=== PATIENT | male | born 1995 | race Caucasian/White ===

== ENCOUNTER 2019-01-08 19:58 | Inpatient (IN) ==
--- NOTE | 2019-01-08 20:01 | Emergency Department Note ---
Disposition Clinical Impression: Suicidal ideation Alcohol intoxication Qualifiers: Complication of substance-induced condition: with delirium Qualified Code(s): F10.921 - Alcohol use, unspecified with intoxication delirium Disposition: Admitted As Inpatient Condition: Fair Referrals: NONE,PCP [Primary Care Provider] - Forms: ED Satisfaction Letter Time of Disposition: 06:53 Psych HPI - General Stated Complaint: SI Time Seen by Provider: 01/08/19 20:01 - History of Present Illness HPI Narrative: 23-year-old male, no significant past medical history presenting due to suicidal ideation. Patient states that he attempted to "drink himself to " this evening and states that "I cannot drink enough alcohol to kill myself." Patient states that he wants to see 1A states that he is suicidal with plan stating that he stole his parents gun and that he intends to "blow his head off." Patient denies homicidal ideation. Patient is otherwise unable to take part in significant review of systems questioning, as he answers "yes sir" to every question with this which is asked of him. When asked to give open ended answers to if he has any pain or complaints at this time he states no, however when ask ed about specifically headache chest pain or abdominal pain he says "yes sir." Patient is intoxicated and appears to be mildly agitated. He will be pink slipped with psychiatric evaluation pending medical clearance. Pt complaint: suicidal ideation, feels depressed, altered mental status Onset (ago): unknown Context: recent alcohol abuse Alleged intoxication: Yes Associated Psychiatric Symptoms: depression, suicidal ideation Self harm or harm to others: admits thoughts of self harm, has plan - Related Data Home Medications Medication Instructions Recorded Confirmed Citalopram [CeleXA] 40 mg PO DAILY 10/25/15 10/25/15 Previous Rx's Medication Instructions Recorded Ibuprofen [Motrin] 800 mg PO Q8HR #30 tablet 10/25/15 Naproxen [Naprosyn] 500 mg PO BID #14 tablet 09/20/18 Allergies Allergy/AdvReac Type Severity Reaction Status Date / Time No Known Allergies Allergy Verified 10/06/18 22:58 Review of Systems: As Per HPI Limitations: ROS unobtainable due to patients medical condition Past Medical History - Past Medical History Medical history: Reports: no medical history Surgical history: Reports: no surgical history Psychiatric history: Reports: anxiety - Social History Smoking Status: Never smoker Smokeless Tobacco Status: No Alcohol use: Reports: none Drug use: Reports: none Physical Exam Constitutional: Patient appears in moderate emotional distress and is also intoxicated he is otherwise [id number], engaged to conversation, speech is fluid, answers questions appropriately Neuro: GCS 15, no overt focal neurological deficits Head: Atraumatic, normocephalic Eyes: Pupils equal, round and reactive to light, no scleral icterus, no conjunctival injection Neck: Trachea midline without deviation. Anterior neck is supple without swelling. *Chest: Symmetric chest wall rise *Heart: Cardiac rhythm and rate are regular with S1 and S2 , no S3 or S4 appreciated, no murmurs, gallops, rubs, or clicks. *Lungs: Lungs are clear to auscultation bilaterally, without accessory muscle use or prolonged expiratory phase. No wheezes, rhonchi or stridor appreciated. Abdomen: Abdomen is flat, soft to palpation, normal bowel sounds. No abdominal bruit auscultated. Non-distended, non-rigid, no organomegaly, no ascites appreciated. No pulsatile mass, no tenderness or guarding to palpation in all four quadrants, no rebound Extremities: Normal capillary refill without evidence of pedal edema, joint swelling or erythema. Pulses/motor/sensory intact in all 4 extremities. Psychiatric exam: Patient is intoxicated and appears agitated, he is otherwise cooperative with questioning Integumentary: warm, dry, intact, normal color. No rash, cyanosis, diaphoresis, erythema, or pallor - General Limitations: altered mental status General appearance: appears intoxicated Course Course Narrative: Basic laboratories, toxicologies We will consult psychiatric services for further evaluation pending medical clearance. - Reevaluation(s) Reevaluation #1: Patient ethanol in all level is elevated at 212 Repeat ethanol level will be performed at 2 AM Consults psychiatric services will be placed for an ethanol level of 80 has been reached Patient is hemodynamically stable at this time. Vital Signs Temperature 98.3 F 01/08/19 20:05 Pulse Rate 114 01/08/19 20:05 Respiratory Rate 16 01/08/19 20:05 Blood Pressure 142/93 01/08/19 20:05 O2 Sat by Pulse Oximetry 98 01/08/19 20:05 Temperature 98.3 F 01/08/19 20:05 Pulse Rate 114 01/08/19 20:05 Respiratory Rate 16 01/08/19 20:05 Blood Pressure 142/93 01/08/19 20:05 O2 Sat by Pulse Oximetry 98 01/08/19 20:05 Oxygen Delivery Oxygen Delivery Room Air Psych - MDM Narrative Medical decision making narrative: Patient ethanol level noted at 69 upon dry 4 AM. Patient is cleared for medical evaluation at this time. Patient will be admitted to psychiatric services for further evaluation and management of suicidal ideation. Decision to place and bed request have been entered. Patient is hemodynamically stable time of admission. - Lab Data Result diagrams: 01/08/19 20:07 01/08/19 20:07 Lab Results 01/08/19 01/08/19 01/08/19 Range/Units 20:07 20:07 20:50 WBC 13.3 H (4.3-11.1) K/mcL RBC 5.07 (4.19-5.50) M/mcL Hgb 15.2 (12.9-16.9) g/dL Hct 44.9 (37.5-50.1) % MCV 88.6 (83.0-100.0) fL MCH 30.0 (28.0-33.3) pg MCHC 33.9 (31.6-35.5) g/dL RDW 13.4 (11.5-14.5) % Plt Count 260 (140-400) K/mcL MPV 10.0 (9.4-12.4) fL Immature Gran % 0.3 (0-4) % Seg Neutrophils % 71.7 % Lymphocytes % 21.3 % Monocytes % 6.4 % Eosinophils % 0.1 % Basophils % 0.2 % Neutrophils # 9.6 H (1.6-8.9) K/mcL Lymphocytes # 2.8 (0.6-4.6) K/mcL Monocytes # 0.9 (0.0-1.3) K/mcL Eosinophils # 0.0 (0.0-0.6) K/mcL Basophils # 0.0 (0.0-0.2) K/mcL Sodium 142 (136-145) mEq/L Potassium 3.8 (3.5-5.1) mEq/L Chloride 106 (98-107) mEq/L Carbon Dioxide 26 (23-29) mEq/L BUN 13 (6-20) mg/dL Creatinine 0.88 (0.70-1.30) mg/dL Est GFR ( Amer) > 60 (> 60) Est GFR (Non-Af Amer) > 60 (> 60) BUN/Creatinine Ratio 15 (6-26) Glucose 77 (70-105) mg/dL Calculated Osmolality 293 (280-300) Calcium 9.8 (8.6-10.3) mg/dL Urine Color (Yellow) Urine Clarity (Clear) Urine pH (5.0-8.0) pH Units Ur Specific [place] (1.010-1.025) Urine Protein (Neg-Trace) mg/dL Urine Glucose (UA) (Normal) mg/dL Urine Ketones (Negative) mg/dL Urine Blood (Negative) Urine Nitrite (Negative) Urine Bilirubin (Negative) Urine Urobilinogen (Normal) mg/dL Ur Leukocyte Esterase (Negative) Ur Culture Indicated? (NO) Salicylates < 2.5 L (15.0-30.0) mg/dL Urine Opiates Screen (Zrtuew=765) ng/mL Acetaminophen < 10 L (10-20) mcg/mL Ur Barbiturates Screen (Egutcm=623) ng/mL Ur Phencyclidine Scrn (Cutoff=25) ng/mL Ur Amphetamines Screen (Nyypav=2334) ng/mL U Benzodiazepines Scrn (Smauxj=916) ng/mL Urine Cocaine Screen (Cutoff= 300) ng/mL U Marijuana (THC) Screen (Cutoff = 50) ng/mL Ur Drug Screen Interp Ethyl Alcohol 212 H (Less than 10) mg/dL Ur C. trach DNA (PCR) NOT DETECTED (Not Detect) U N.gonorrhoeae DNA PCR NOT DETECTED (Not Detect) 01/08/19 01/08/19 01/09/19 Range/Units 20:52 20:52 02:05 WBC (4.3-11.1) K/mcL RBC (4.19-5.50) M/mcL Hgb (12.9-16.9) g/dL Hct (37.5-50.1) % MCV (83.0-100.0) fL MCH (28.0-33.3) pg MCHC (31.6-35.5) g/dL RDW (11.5-14.5) % Plt Count (140-400) K/mcL MPV (9.4-12.4) fL Immature Gran % (0-4) % Seg Neutrophils % % Lymphocytes % % Monocytes % % Eosinophils % % Basophils % % Neutrophils # (1.6-8.9) K/mcL Lymphocytes # (0.6-4.6) K/mcL Monocytes # (0.0-1.3) K/mcL Eosinophils # (0.0-0.6) K/mcL Basophils # (0.0-0.2) K/mcL Sodium (136-145) mEq/L Potassium (3.5-5.1) mEq/L Chloride (98-107) mEq/L Carbon Dioxide (23-29) mEq/L BUN (6-20) mg/dL Creatinine (0.70-1.30) mg/dL Est GFR ( Amer) (> 60) Est GFR (Non-Af Amer) (> 60) BUN/Creatinine Ratio (6-26) Glucose (70-105) mg/dL Calculated Osmolality (280-300) Calcium (8.6-10.3) mg/dL Urine Color Yellow (Yellow) Urine Clarity Clear (Clear) Urine pH 7.5 (5.0-8.0) pH Units Ur Specific [place] 1.012 (1.010-1.025) Urine Protein Negative (Neg-Trace) mg/dL Urine Glucose (UA) Normal (Normal) mg/dL Urine Ketones Negative (Negative) mg/dL Urine Blood Negative (Negative) Urine Nitrite Negative (Negative) Urine Bilirubin Negative (Negative) Urine Urobilinogen Normal (Normal) mg/dL Ur Leukocyte Esterase Negative (Negative) Ur Culture Indicated? NO (NO) Salicylates (15.0-30.0) mg/dL Urine Opiates Screen Negative (Jufxfk=625) ng/mL Acetaminophen (10-20) mcg/mL Ur Barbiturates Screen Negative (Gvrfwc=196) ng/mL Ur Phencyclidine Scrn Negative (Cutoff=25) ng/mL Ur Amphetamines Screen Negative (Bfnesf=3680) ng/mL U Benzodiazepines Scrn Negative (Uvzgdb=243) ng/mL Urine Cocaine Screen Negative (Cutoff= 300) ng/mL U Marijuana (THC) Screen Positive H (Cutoff = 50) ng/mL Ur Drug Screen Interp See Below Ethyl Alcohol 109 H (Less than 10) mg/dL Ur C. trach DNA (PCR) (Not Detect) U N.gonorrhoeae DNA PCR (Not Detect) 01/09/19 Range/Units 03:56 WBC (4.3-11.1) K/mcL RBC (4.19-5.50) M/mcL Hgb (12.9-16.9) g/dL Hct (37.5-50.1) % MCV (83.0-100.0) fL MCH (28.0-33.3) pg MCHC (31.6-35.5) g/dL RDW (11.5-14.5) % Plt Count (140-400) K/mcL MPV (9.4-12.4) fL Immature Gran % (0-4) % Seg Neutrophils % % Lymphocytes % % Monocytes % % Eosinophils % % Basophils % % Neutrophils # (1.6-8.9) K/mcL Lymphocytes # (0.6-4.6) K/mcL Monocytes # (0.0-1.3) K/mcL Eosinophils # (0.0-0.6) K/mcL Basophils # (0.0-0.2) K/mcL Sodium (136-145) mEq/L Potassium (3.5-5.1) mEq/L Chloride (98-107) mEq/L Carbon Dioxide (23-29) mEq/L BUN (6-20) mg/dL Creatinine (0.70-1.30) mg/dL Est GFR ( Amer) (> 60) Est GFR (Non-Af Amer) (> 60) BUN/Creatinine Ratio (6-26) Glucose (70-105) mg/dL Calculated Osmolality (280-300) Calcium (8.6-10.3) mg/dL Urine Color (Yellow) Urine Clarity (Clear) Urine pH (5.0-8.0) pH Units Ur Specific [place] (1.010-1.025) Urine Protein (Neg-Trace) mg/dL Urine Glucose (UA) (Normal) mg/dL Urine Ketones (Negative) mg/dL Urine Blood (Negative) Urine Nitrite (Negative) Urine Bilirubin (Negative) Urine Urobilinogen (Normal) mg/dL Ur Leukocyte Esterase (Negative) Ur Culture Indicated? (NO) Salicylates (15.0-30.0) mg/dL Urine Opiates Screen (Yynzkl=670) ng/mL Acetaminophen (10-20) mcg/mL Ur Barbiturates Screen (Zqnryu=582) ng/mL Ur Phencyclidine Scrn (Cutoff=25) ng/mL Ur Amphetamines Screen (Hjcnbw=3904) ng/mL U Benzodiazepines Scrn (Whzeol=808) ng/mL Urine Cocaine Screen (Cutoff= 300) ng/mL U Marijuana (THC) Screen (Cutoff = 50) ng/mL Ur Drug Screen Interp Ethyl Alcohol 69 H (Less than 10) mg/dL Ur C. trach DNA (PCR) (Not Detect) U N.gonorrhoeae DNA PCR (Not Detect) Psychiatric Medical Clearance - Medical Clearance Checklist Medical History: No Social History Section defined Current Vitals: Last Vital Signs Temp 98.3 F 01/08/19 20:05 Pulse 114 01/08/19 20:05 Resp 16 01/08/19 20:05 BP 142/93 01/08/19 20:05 Pulse Ox 98 01/08/19 20:05 Psychiatric Lab Panel: Drug Levels and Toxicity 01/08/19 01/08/19 01/09/19 20:07 20:52 02:05 Urine Opiates Screen Negative Acetaminophen < 10 L Ur Barbiturates Screen Negative Ur Phencyclidine Scrn Negative Ur Amphetamines Screen Negative U Benzodiazepines Scrn Negative Urine Cocaine Screen Negative U Marijuana (THC) Screen Positive H Ethyl Alcohol 212 H 109 H 01/09/19 03:56 Urine Opiates Screen Acetaminophen Ur Barbiturates Screen Ur Phencyclidine Scrn Ur Amphetamines Screen U Benzodiazepines Scrn Urine Cocaine Screen U Marijuana (THC) Screen Ethyl Alcohol 69 H Abnormal Labs: Abnormal lab results WBC 13.3 K/mcL (4.3-11.1) H 01/08/19 20:07 9.6 K/mcL (1.6-8.9) H 01/08/19 20:07 Salicylates < 2.5 mg/dL (15.0-30.0) L 01/08/19 20:07 Acetaminophen < 10 mcg/mL (10-20) L 01/08/19 20:07 U Marijuana (THC) Screen Positive ng/mL (Cutoff = 50) H 01/08/19 20:52 Ethyl Alcohol 69 mg/dL (Less than 10) H 01/09/19 03:56 Statement of Medical Clearance: I have evaluated the patient, reviewed diagnostic information, and certify that the patient's medical condition is sufficiently stable that transfer to the psychiatric unit does not pose a significant risk of deterioration.
[2019-01-08] MEDS ORDERED: Nicotine 21 MG PATCH.TD24 TD SCH (20:30)
[2019-01-08 21:03] LABS: Bilirubin,Urine Negative (Negative); Blood,Urine Negative (Negative); Clarity,Urine Clear (Clear); Color,Urine Yellow (Yellow); Glucose,Urine (UA) Normal (Normal); Ketones,Urine Negative (Negative); Leukocyte Esterase,Urine Negative (Negative); Nitrite,Urine Negative (Negative); PH,Urine 7.5 pH Units (5.0-8.0); Protein,Urine Negative (Neg-Trace); Specific Gravity,Urine 1.012 (1.010-1.025); Urobilinogen,Urine Normal (Normal)
[2019-01-08 21:08] LABS: Basophils % 0.2 %; Eosinophils % 0.1 %; Hematocrit 44.9 % (37.5-50.1); Hemoglobin 15.2 g/dL (12.9-16.9); Immature Granulocytes % 0.3 % (0-4); Lymphocytes # 2.8 K/mcL (0.6-4.6); Lymphocytes % 21.3 %; Mean Corpuscular HGB Conc 33.9 g/dL (31.6-35.5); Mean Corpuscular Volume 88.6 fL (83.0-100.0); Monocytes # 0.9 K/mcL (0.0-1.3); Monocytes % 6.4 %; Neutrophils # 9.6 K/mcL (1.6-8.9); Platelet Count 260 K/mcL (140-400); Red Blood Count 5.07 M/mcL (4.19-5.50); Red Cell Distribution Width 13.4 % (11.5-14.5); Segmented Neutrophils % 71.7 %; White Blood Count 13.3 K/mcL (4.3-11.1)
[2019-01-08 21:13] LABS: Amphetamine Screen,Urine Negative ng/mL (Cutoff=1000); Barbiturate Screen,Urine Negative ng/mL (Cutoff=200); Benzodiazepines Screen,Urine Negative ng/mL (Cutoff=200); Cannabinoid Screen,Urine Positive ng/mL (Cutoff = 50); Cocaine Screen,Urine Negative ng/mL (Cutoff= 300); Opiate Screen,Urine Negative ng/mL (Cutoff=300); Phencyclidine Screen,Urine Negative ng/mL (Cutoff=25)
[2019-01-08 21:25] LABS: Acetaminophen < 10 mcg/mL (10-20); BUN/Creatinine Ratio 15 (6-26); Blood Urea Nitrogen 13 mg/dL (6-20); Calcium 9.8 mg/dL (8.6-10.3); Carbon Dioxide 26 mEq/L (23-29); Chloride 106 mEq/L (98-107); Ethanol 212 mg/dL (Less than 10); Glucose 77 mg/dL (70-105); Osmolality,Calculated 293 (280-300); Potassium 3.8 mEq/L (3.5-5.1); Salicylate < 2.5 mg/dL (15.0-30.0); Sodium 142 mEq/L (136-145); eGFR For African Americans > 60 (> 60); eGFR For Non-African Americans > 60 (> 60)
--- NOTE | 2019-01-08 21:52 | Emergency Department Note ---
Disposition Clinical Impression: Suicidal ideation Alcohol intoxication Qualifiers: Complication of substance-induced condition: with delirium Qualified Code(s): F10.921 - Alcohol use, unspecified with intoxication delirium Disposition: Admitted As Inpatient Condition: Fair Time of Disposition: 07:09 General Adult HPI - General Chief complaint: ED Psychiatric Symptoms Stated complaint: SI Time Seen by Provider: 01/08/19 20:01 Source: patient Limitations: no limitations Nursing Notes Reviewed: Yes Vital Signs Reviewed: Yes - History of Present Illness Pain Scale: 0 - Related Data Home Medications Medication Instructions Recorded Confirmed Citalopram [CeleXA] 40 mg PO DAILY 10/25/15 10/25/15 Previous Rx's Medication Instructions Recorded Ibuprofen [Motrin] 800 mg PO Q8HR #30 tablet 10/25/15 Naproxen [Naprosyn] 500 mg PO BID #14 tablet 09/20/18 Allergies Allergy/AdvReac Type Severity Reaction Status Date / Time No Known Allergies Allergy Verified 10/06/18 22:58 Past Medical History - Past Medical History Medical history: Reports: no medical history Surgical history: Reports: no surgical history Psychiatric history: Reports: anxiety - Social History Smoking Status: Current every day smoker Smokeless Tobacco Status: No Alcohol use: Reports: heavy, recent Drug use: Reports: none Physical Exam - General Limitations: no limitations General appearance: alert, appears intoxicated Course Vital Signs Temperature 98.3 F 01/08/19 20:05 Pulse Rate 114 01/08/19 20:05 Respiratory Rate 16 01/08/19 20:05 Blood Pressure 142/93 01/08/19 20:05 O2 Sat by Pulse Oximetry 98 01/08/19 20:05 Temperature 98.3 F 01/08/19 20:05 Pulse Rate 114 01/08/19 20:05 Respiratory Rate 16 01/08/19 20:05 Blood Pressure 142/93 01/08/19 20:05 O2 Sat by Pulse Oximetry 98 01/08/19 20:05 Oxygen Delivery Oxygen Delivery Room Air Medical Decision Making - Lab Data Lab results reviewed: Yes I reviewed the patient's lab results. Result diagrams: 01/08/19 20:07 01/08/19 20:07 Lab Results 01/08/19 01/08/19 01/08/19 Range/Units 20:07 20:07 20:50 WBC 13.3 H (4.3-11.1) K/mcL RBC 5.07 (4.19-5.50) M/mcL Hgb 15.2 (12.9-16.9) g/dL Hct 44.9 (37.5-50.1) % MCV 88.6 (83.0-100.0) fL MCH 30.0 (28.0-33.3) pg MCHC 33.9 (31.6-35.5) g/dL RDW 13.4 (11.5-14.5) % Plt Count 260 (140-400) K/mcL MPV 10.0 (9.4-12.4) fL Immature Gran % 0.3 (0-4) % Seg Neutrophils % 71.7 % Lymphocytes % 21.3 % Monocytes % 6.4 % Eosinophils % 0.1 % Basophils % 0.2 % Neutrophils # 9.6 H (1.6-8.9) K/mcL Lymphocytes # 2.8 (0.6-4.6) K/mcL Monocytes # 0.9 (0.0-1.3) K/mcL Eosinophils # 0.0 (0.0-0.6) K/mcL Basophils # 0.0 (0.0-0.2) K/mcL Sodium 142 (136-145) mEq/L Potassium 3.8 (3.5-5.1) mEq/L Chloride 106 (98-107) mEq/L Carbon Dioxide 26 (23-29) mEq/L BUN 13 (6-20) mg/dL Creatinine 0.88 (0.70-1.30) mg/dL Est GFR ( Amer) > 60 (> 60) Est GFR (Non-Af Amer) > 60 (> 60) BUN/Creatinine Ratio 15 (6-26) Glucose 77 (70-105) mg/dL Calculated Osmolality 293 (280-300) Calcium 9.8 (8.6-10.3) mg/dL Urine Color (Yellow) Urine Clarity (Clear) Urine pH (5.0-8.0) pH Units Ur Specific [place] (1.010-1.025) Urine Protein (Neg-Trace) mg/dL Urine Glucose (UA) (Normal) mg/dL Urine Ketones (Negative) mg/dL Urine Blood (Negative) Urine Nitrite (Negative) Urine Bilirubin (Negative) Urine Urobilinogen (Normal) mg/dL Ur Leukocyte Esterase (Negative) Ur Culture Indicated? (NO) Salicylates < 2.5 L (15.0-30.0) mg/dL Urine Opiates Screen (Cdaszn=379) ng/mL Acetaminophen < 10 L (10-20) mcg/mL Ur Barbiturates Screen (Btqawe=950) ng/mL Ur Phencyclidine Scrn (Cutoff=25) ng/mL Ur Amphetamines Screen (Zmugwk=4069) ng/mL U Benzodiazepines Scrn (Otmntf=357) ng/mL Urine Cocaine Screen (Cutoff= 300) ng/mL U Marijuana (THC) Screen (Cutoff = 50) ng/mL Ur Drug Screen Interp Ethyl Alcohol 212 H (Less than 10) mg/dL Ur C. trach DNA (PCR) NOT DETECTED (Not Detect) U N.gonorrhoeae DNA PCR NOT DETECTED (Not Detect) 01/08/19 01/08/19 01/09/19 Range/Units 20:52 20:52 02:05 WBC (4.3-11.1) K/mcL RBC (4.19-5.50) M/mcL Hgb (12.9-16.9) g/dL Hct (37.5-50.1) % MCV (83.0-100.0) fL MCH (28.0-33.3) pg MCHC (31.6-35.5) g/dL RDW (11.5-14.5) % Plt Count (140-400) K/mcL MPV (9.4-12.4) fL Immature Gran % (0-4) % Seg Neutrophils % % Lymphocytes % % Monocytes % % Eosinophils % % Basophils % % Neutrophils # (1.6-8.9) K/mcL Lymphocytes # (0.6-4.6) K/mcL Monocytes # (0.0-1.3) K/mcL Eosinophils # (0.0-0.6) K/mcL Basophils # (0.0-0.2) K/mcL Sodium (136-145) mEq/L Potassium (3.5-5.1) mEq/L Chloride (98-107) mEq/L Carbon Dioxide (23-29) mEq/L BUN (6-20) mg/dL Creatinine (0.70-1.30) mg/dL Est GFR ( Amer) (> 60) Est GFR (Non-Af Amer) (> 60) BUN/Creatinine Ratio (6-26) Glucose (70-105) mg/dL Calculated Osmolality (280-300) Calcium (8.6-10.3) mg/dL Urine Color Yellow (Yellow) Urine Clarity Clear (Clear) Urine pH 7.5 (5.0-8.0) pH Units Ur Specific [place] 1.012 (1.010-1.025) Urine Protein Negative (Neg-Trace) mg/dL Urine Glucose (UA) Normal (Normal) mg/dL Urine Ketones Negative (Negative) mg/dL Urine Blood Negative (Negative) Urine Nitrite Negative (Negative) Urine Bilirubin Negative (Negative) Urine Urobilinogen Normal (Normal) mg/dL Ur Leukocyte Esterase Negative (Negative) Ur Culture Indicated? NO (NO) Salicylates (15.0-30.0) mg/dL Urine Opiates Screen Negative (Vxlcbd=042) ng/mL Acetaminophen (10-20) mcg/mL Ur Barbiturates Screen Negative (Hekgel=496) ng/mL Ur Phencyclidine Scrn Negative (Cutoff=25) ng/mL Ur Amphetamines Screen Negative (Cceuss=1780) ng/mL U Benzodiazepines Scrn Negative (Gqzfow=239) ng/mL Urine Cocaine Screen Negative (Cutoff= 300) ng/mL U Marijuana (THC) Screen Positive H (Cutoff = 50) ng/mL Ur Drug Screen Interp See Below Ethyl Alcohol 109 H (Less than 10) mg/dL Ur C. trach DNA (PCR) (Not Detect) U N.gonorrhoeae DNA PCR (Not Detect) 01/09/19 Range/Units 03:56 WBC (4.3-11.1) K/mcL RBC (4.19-5.50) M/mcL Hgb (12.9-16.9) g/dL Hct (37.5-50.1) % MCV (83.0-100.0) fL MCH (28.0-33.3) pg MCHC (31.6-35.5) g/dL RDW (11.5-14.5) % Plt Count (140-400) K/mcL MPV (9.4-12.4) fL Immature Gran % (0-4) % Seg Neutrophils % % Lymphocytes % % Monocytes % % Eosinophils % % Basophils % % Neutrophils # (1.6-8.9) K/mcL Lymphocytes # (0.6-4.6) K/mcL Monocytes # (0.0-1.3) K/mcL Eosinophils # (0.0-0.6) K/mcL Basophils # (0.0-0.2) K/mcL Sodium (136-145) mEq/L Potassium (3.5-5.1) mEq/L Chloride (98-107) mEq/L Carbon Dioxide (23-29) mEq/L BUN (6-20) mg/dL Creatinine (0.70-1.30) mg/dL Est GFR ( Amer) (> 60) Est GFR (Non-Af Amer) (> 60) BUN/Creatinine Ratio (6-26) Glucose (70-105) mg/dL Calculated Osmolality (280-300) Calcium (8.6-10.3) mg/dL Urine Color (Yellow) Urine Clarity (Clear) Urine pH (5.0-8.0) pH Units Ur Specific [place] (1.010-1.025) Urine Protein (Neg-Trace) mg/dL Urine Glucose (UA) (Normal) mg/dL Urine Ketones (Negative) mg/dL Urine Blood (Negative) Urine Nitrite (Negative) Urine Bilirubin (Negative) Urine Urobilinogen (Normal) mg/dL Ur Leukocyte Esterase (Negative) Ur Culture Indicated? (NO) Salicylates (15.0-30.0) mg/dL Urine Opiates Screen (Rrnvhg=210) ng/mL Acetaminophen (10-20) mcg/mL Ur Barbiturates Screen (Qaskbg=783) ng/mL Ur Phencyclidine Scrn (Cutoff=25) ng/mL Ur Amphetamines Screen (Kirffd=1662) ng/mL U Benzodiazepines Scrn (Iyitdc=901) ng/mL Urine Cocaine Screen (Cutoff= 300) ng/mL U Marijuana (THC) Screen (Cutoff = 50) ng/mL Ur Drug Screen Interp Ethyl Alcohol 69 H (Less than 10) mg/dL Ur C. trach DNA (PCR) (Not Detect) U N.gonorrhoeae DNA PCR (Not Detect) Attestation Statement - Attestation Attestation: I, Adelso Zamudio MD, personally evaluated this patient and discussed their management with the resident physician. I reviewed the resident's note and agree with the documented findings, medical decision making, and plan of care. 23-year-old male persisted emergency department with complaint of suicidal ideation. Patient states that he wants to take a gun and shoot himself in the head. He denies homicidal ideation. He admits to drinking alcohol heavily today. She admits to using marijuana. He denies any other drug use or ingestion. On examination patient is a well-developed thin young male in no acute distress. He is alert and oriented 3. There is no cyanosis or diaphoresis. Breath sounds are clear and equal bilaterally. Heart regular with a mild tachycardia. Abdomen soft and nontender with normal bowel sounds. No gross focal neurological deficits. Labs reviewed. Alcohol level 212. We will repeat alcohol at 02:00. Alcohol came down to 69. [address] psychiatry department was consulted and evaluated patient in the emergency department. After evaluation patient is being admitted to the [address] psychiatric unit.
[2019-01-09 00:17] LABS: Chlamydia Trachomatis DNA Ur NOT DETECTED (Not Detect)
[2019-01-09] MEDS ORDERED: *HR* LORazepam 1 MG TABLET PO PRN (07:32)
[2019-01-09] MEDS ORDERED: MOM Conc 10 ML UD.LIQ PO PRN (07:32)
[2019-01-09] MEDS ORDERED: Mag Hydrox/Al Hydrox/Simeth 30 ML UDC PO PRN (07:32)
[2019-01-09] MEDS ORDERED: Ibuprofen 400 MG TABLET PO PRN (07:32)
[2019-01-09] MEDS ORDERED: traZODone 50 MG TABLET PO PRN (07:32)
[2019-01-09] MEDS ORDERED: hydrOXYzine pamoate 25 MG CAPSULE PO PRN (07:32)
[2019-01-09] MEDS ORDERED: *HR* LORazepam 2 MG/ML VIAL IM PRN (07:32)
[2019-01-09] MEDS ORDERED: Haloperidol Lactate 5 MG/ML VIAL IM PRN (07:32)
[2019-01-09] MEDS ORDERED: Nicotine 2 MG GUM BC PRN (07:54)
[2019-01-09 09:46] VITALS: BP 134/86
--- NOTE | 2019-01-09 10:34 | Psychiatry History & Physical ---
Date of Encounter: 01/09/19 Time of Encounter: 10:28 History of Present Illness Patient Stated Chief Complaint: suicidal ideation Medicare Admission Attestation: For traditional Medicare patients the provided hospital inpatient services are reasonable and necessary and in the case of services not specified as inpatient-only under 42 CFR 419.22 (n), that they are appropriately provided as inpatient services in accordance 42 CFR 412.3. For [facility] the patient may reasonably be expected to be discharged or transferred to a hospital within 96 hours after admission to the Critical [facility]. Admitted From: Home Plans for Post Hospital Care: Home History of Present Illness: Mr. Ward is a 23 year old male Past Med Surg Social Fam HX - Past Medical History Medical history: no medical history - Past Surgical History Surgical History: no surgical history - Social History Smoking Status: Current every day smoker Smokeless Tobacco Status: No Alcohol use: heavy, recent Drug use: none Medications & Allergies Naproxen [Naprosyn] 500 mg PO BID #14 tablet 09/20/18 [Rx] Allergy/AdvReac Type Severity Reaction Status Date / Time No Known Allergies Allergy Verified 10/06/18 22:58 Exam - Constitutional Vitals: Temp Pulse Resp BP Pulse Ox 98.1 F 62 16 134/86 97 01/09/19 09:00 01/09/19 09:00 01/09/19 09:00 01/09/19 09:00 01/09/19 09:00 Results - Drug Levels and Toxicology Drug Levels and Toxicology: Drug Levels and Toxicity 01/08/19 01/08/19 01/09/19 20:07 20:52 02:05 Urine Opiates Screen Negative Acetaminophen < 10 L Ur Barbiturates Screen Negative Ur Phencyclidine Scrn Negative Ur Amphetamines Screen Negative U Benzodiazepines Scrn Negative Urine Cocaine Screen Negative U Marijuana (THC) Screen Positive H Ethyl Alcohol 212 H 109 H 01/09/19 03:56 Urine Opiates Screen Acetaminophen Ur Barbiturates Screen Ur Phencyclidine Scrn Ur Amphetamines Screen U Benzodiazepines Scrn Urine Cocaine Screen U Marijuana (THC) Screen Ethyl Alcohol 69 H - Labs Labs: Laboratory Last Values WBC 13.3 K/mcL (4.3-11.1) H 01/08/19 20:07 RBC 5.07 M/mcL (4.19-5.50) 01/08/19 20:07 Hgb 15.2 g/dL (12.9-16.9) 01/08/19 20:07 Hct 44.9 % (37.5-50.1) 01/08/19 20:07 MCV 88.6 fL (83.0-100.0) 01/08/19 20:07 MCH 30.0 pg (28.0-33.3) 01/08/19 20:07 MCHC 33.9 g/dL (31.6-35.5) 01/08/19 20:07 RDW 13.4 % (11.5-14.5) 01/08/19 20:07 Plt Count 260 K/mcL (140-400) 01/08/19 20:07 MPV 10.0 fL (9.4-12.4) 01/08/19 20:07 Immature Gran % 0.3 % (0-4) 01/08/19 20:07 Seg Neutrophils % 71.7 % 01/08/19 20:07 21.3 % 01/08/19 20:07 6.4 % 01/08/19 20:07 0.1 % 01/08/19 20:07 0.2 % 01/08/19 20:07 9.6 K/mcL (1.6-8.9) H 01/08/19 20:07 2.8 K/mcL (0.6-4.6) 01/08/19 20:07 0.9 K/mcL (0.0-1.3) 01/08/19 20:07 0.0 K/mcL (0.0-0.6) 01/08/19 20:07 0.0 K/mcL (0.0-0.2) 01/08/19 20:07 Sodium 142 mEq/L (136-145) 01/08/19 20:07 Potassium 3.8 mEq/L (3.5-5.1) 01/08/19 20:07 Chloride 106 mEq/L (98-107) 01/08/19 20:07 Carbon Dioxide 26 mEq/L (23-29) 01/08/19 20:07 BUN 13 mg/dL (6-20) 01/08/19 20:07 0.88 mg/dL (0.70-1.30) 01/08/19 20:07 Est GFR ( Amer) > 60 (> 60) 01/08/19 20:07 Est GFR (Non-Af Amer) > 60 (> 60) 01/08/19 20:07 15 (6-26) 01/08/19 20:07 Glucose 77 mg/dL (70-105) 01/08/19 20:07 293 (280-300) 01/08/19 20:07 Calcium 9.8 mg/dL (8.6-10.3) 01/08/19 20:07 Yellow (Yellow) 01/08/19 20:52 Clear (Clear) 01/08/19 20:52 7.5 pH Units (5.0-8.0) 01/08/19 20:52 Ur Specific [place] 1.012 (1.010-1.025) 01/08/19 20:52 Negative mg/dL (Neg-Trace) 01/08/19 20:52 Normal mg/dL (Normal) 01/08/19 20:52 Negative mg/dL (Negative) 01/08/19 20:52 Negative (Negative) 01/08/19 20:52 Negative (Negative) 01/08/19 20:52 Negative (Negative) 01/08/19 20:52 Normal mg/dL (Normal) 01/08/19 20:52 Ur Leukocyte Esterase Negative (Negative) 01/08/19 20:52 Ur Culture Indicated? NO (NO) 01/08/19 20:52 Salicylates < 2.5 mg/dL (15.0-30.0) L 01/08/19 20:07 Negative ng/mL (Alynbq=945) 01/08/19 20:52 Acetaminophen < 10 mcg/mL (10-20) L 01/08/19 20:07 Ur Barbiturates Screen Negative ng/mL (Wfreda=435) 01/08/19 20:52 Ur Phencyclidine Scrn Negative ng/mL (Cutoff=25) 01/08/19 20:52 Ur Amphetamines Screen Negative ng/mL (Mwjdls=2841) 01/08/19 20:52 U Benzodiazepines Scrn Negative ng/mL (Ohknjp=725) 01/08/19 20:52 Negative ng/mL (Cutoff= 300) 01/08/19 20:52 U Marijuana (THC) Screen Positive ng/mL (Cutoff = 50) H 01/08/19 20:52 Ur Drug Screen Interp See Below 01/08/19 20:52 Ethyl Alcohol 69 mg/dL (Less than 10) H 01/09/19 03:56 Ur C. trach DNA (PCR) NOT DETECTED (Not Detect) 01/08/19 20:50 U N.gonorrhoeae DNA PCR NOT DETECTED (Not Detect) 01/08/19 20:50 Assessment and Plan (1) Suicidal ideation Current visit: Yes Status: Acute Additional Plan: Note not completed as client was switched from an admission to an observation. H&P and Discharge Summary part of Obs note. This note may be withdrawn.
--- NOTE | 2019-01-09 10:42 | Discharge Summary ---
Date of Encounter: 01/09/19 Time of Encounter: 10:34 History of Present Illness Chief complaint: suicidal ideation Admitted From: Home History of Present Illness: Mr. Ward is a 23 year old male who was admitted secondary to SI. Client came to the ER intoxicated with a BAL over 0.2. At the time of presentation he was screaming he wanted admitted to and that he would kill himself if not admitted. Client lives with his mother who accompanied him and she reported client has threatened suicide in the past but that she has never seen him like this before. When client sobered up in the ER he denied SI/HI/AH/VH and did not want admitted. He did not remember much of the night before. He did not deny saying the things he did but reported it was just the alcohol talking. Staff called his mother who had gone home. She reported having unlocked guns at home and this made her nervous. Client was then admitted to for further assessment of safety risk. On eval today client is alert and oriented. Adamantly denying SI, intent, or plan. No history of attempts. No history of hospitalizations. Client does admit to some depression and reports he recently started seeing a counselor at [facility]. Also takes Lexapro from PCP but not finding it helpful. Client has a significant history of substance abuse including pain pills, cocaine and Xanax. Quit everything cold turkey almost a year ago. Has not felt physically right since coming off all drugs. Has aches and pains that he has been trying to control with alcohol since turning 23 a couple of weeks ago. Client states he was never a drinker until his 23st birthday a couple of weeks ago. No withdrawal symptoms. States last night taught him a valuable lesson as to what alcohol can do. Client reports he has never endorsed suicidality unless intoxicated/high. This senior copywriter spoke with client's mother via phone. She indicated she felt comfortable having him return home today but that she wanted to make sure he followed up frequently on an outpatient basis. She indicated she would secure the guns or remove them from the house before his return. Client currently only taking 5mg of Lexapro. Tolerating it well. Discussed how this dose might not be effective for him so will increase to 10mg and have him follow-up with his outpatient provider. Staff will call him at home tomorrow to discuss outpatient linkage/weekly therapy appointments for a time. Client and mother agreeable with this plan. Past Med Surg Social Fam HX - Past Medical History Medical history: no medical history - Past Psychiatric History Psychiatric history: Reports: depression Family psychiatric history: Yes Family Psychiatric History Details: father-depression Family History of Suicide: None - Past Surgical History Surgical History: no surgical history - Social History Smoking Status: Current every day smoker Smokeless Tobacco Status: No Alcohol use: heavy, recent Drug use: none Medications - Discharge Medications Naproxen [Naprosyn] 500 mg PO BID #14 tablet 09/20/18 [Rx] Allergy/AdvReac Type Severity Reaction Status Date / Time No Known Allergies Allergy Verified 10/06/18 22:58 Review of Systems Constitutional: Denies: fever, chills, weakness, weight change Eyes: Denies: eye pain, vision change Ears, Nose, Throat: Denies: ear pain, throat pain, dental pain, hearing loss, congestion Cardiovascular: Denies: chest pain, palpitations, dyspnea on exertion Respiratory: Denies: cough, dyspnea, wheezes Gastrointestinal: Denies: abdominal pain, nausea, vomiting, diarrhea, constipation Genitourinary male: Denies: urgency, dysuria, frequency, genital lesions Musculoskeletal: Denies: joint swelling, joint pain Integumentary: Denies: rash, lesions, pruritus Neurological: Denies: headache, weakness, numbness, memory loss Endocrine: Denies: fatigue, heat or cold intolerance Hematologic/Lymphatic: Denies: easy bruising, lymphadenopathy Allergic/Immunologic: Denies: urticaria, itchy eyes Exam - HEENT Head exam IM: Present: atraumatic Eye exam IM: Present: EOMI, normal appearance, PERRL ENT exam IM: Present: normal exam - Neurological Neurological exam: Present: CN II-XII intact - Respiratory Respiratory exam IM: Present: CTAB - GI/Abdominal GI/Abdominal exam IM: Present: normal bowel sounds, soft. Absent: tenderness - Extremities Extremities exam IM: Present: full ROM - Skin Skin exam IM: Present: dry, warm - Constitutional Vitals: Temp Pulse Resp BP Pulse Ox 98.1 F 62 16 134/86 97 01/09/19 09:00 01/09/19 09:00 01/09/19 09:00 01/09/19 09:00 01/09/19 09:00 General appearance: age & developmentally appropriate, well-groomed, well- nourished - Musculoskeletal Gait: normal Station: relaxed Strength & Tone: normal for patient - Psychiatric Patient Orientation: Yes Person, Yes Time, Yes Place Level of alertness: Alert Behavior: calm, cooperative Psychomotor activity: Normal Eye Contact: Maintains Eye Contact Mood Description: Depressed Affect description: full range Speech Volume: Normal Speech pattern: normal rate, normal rhythm, normal tone, fluent, spontaneous Language & Vocabulary: consistent with education Thought Process: Linear, Goal Oriented Thought Content: No Suicidal ideation, No Homicidal ideation, No Overt delusions Perceptual Disturbances: No Auditory hallucinations, No Visual hallucinations Attention Span Ability: Capable of Focused Attention Memory Description: Grossly Intact Patient Reliability: Reliable Historian Fund of knowledge: Yes abstraction ability, Yes average, Yes aware of current events Intelligence Estimate: Average Judgment: Limited Insight: Partial Results - Drug Levels and Toxicology Drug Levels and Toxicology: Drug Levels and Toxicity 01/08/19 01/08/19 01/09/19 20:07 20:52 02:05 Urine Opiates Screen Negative Acetaminophen < 10 L Ur Barbiturates Screen Negative Ur Phencyclidine Scrn Negative Ur Amphetamines Screen Negative U Benzodiazepines Scrn Negative Urine Cocaine Screen Negative U Marijuana (THC) Screen Positive H Ethyl Alcohol 212 H 109 H 01/09/19 03:56 Urine Opiates Screen Acetaminophen Ur Barbiturates Screen Ur Phencyclidine Scrn Ur Amphetamines Screen U Benzodiazepines Scrn Urine Cocaine Screen U Marijuana (THC) Screen Ethyl Alcohol 69 H - Labs Labs: Laboratory Last Values WBC 13.3 K/mcL (4.3-11.1) H 01/08/19 20:07 RBC 5.07 M/mcL (4.19-5.50) 01/08/19 20:07 Hgb 15.2 g/dL (12.9-16.9) 01/08/19 20:07 Hct 44.9 % (37.5-50.1) 01/08/19 20:07 MCV 88.6 fL (83.0-100.0) 01/08/19 20:07 MCH 30.0 pg (28.0-33.3) 01/08/19 20:07 MCHC 33.9 g/dL (31.6-35.5) 01/08/19 20:07 RDW 13.4 % (11.5-14.5) 01/08/19 20:07 Plt Count 260 K/mcL (140-400) 01/08/19 20:07 MPV 10.0 fL (9.4-12.4) 01/08/19 20:07 Immature Gran % 0.3 % (0-4) 01/08/19 20:07 Seg Neutrophils % 71.7 % 01/08/19 20:07 21.3 % 01/08/19 20:07 6.4 % 01/08/19 20:07 0.1 % 01/08/19 20:07 0.2 % 01/08/19 20:07 9.6 K/mcL (1.6-8.9) H 01/08/19 20:07 2.8 K/mcL (0.6-4.6) 01/08/19 20:07 0.9 K/mcL (0.0-1.3) 01/08/19 20:07 0.0 K/mcL (0.0-0.6) 01/08/19 20:07 0.0 K/mcL (0.0-0.2) 01/08/19 20:07 Sodium 142 mEq/L (136-145) 01/08/19 20:07 Potassium 3.8 mEq/L (3.5-5.1) 01/08/19 20:07 Chloride 106 mEq/L (98-107) 01/08/19 20:07 Carbon Dioxide 26 mEq/L (23-29) 01/08/19 20:07 BUN 13 mg/dL (6-20) 01/08/19 20:07 0.88 mg/dL (0.70-1.30) 01/08/19 20:07 Est GFR ( Amer) > 60 (> 60) 01/08/19 20:07 Est GFR (Non-Af Amer) > 60 (> 60) 01/08/19 20:07 15 (6-26) 01/08/19 20:07 Glucose 77 mg/dL (70-105) 01/08/19 20:07 293 (280-300) 01/08/19 20:07 Calcium 9.8 mg/dL (8.6-10.3) 01/08/19 20:07 Yellow (Yellow) 01/08/19 20:52 Clear (Clear) 01/08/19 20:52 7.5 pH Units (5.0-8.0) 01/08/19 20:52 Ur Specific [place] 1.012 (1.010-1.025) 01/08/19 20:52 Negative mg/dL (Neg-Trace) 01/08/19 20:52 Normal mg/dL (Normal) 01/08/19 20:52 Negative mg/dL (Negative) 01/08/19 20:52 Negative (Negative) 01/08/19 20:52 Negative (Negative) 01/08/19 20:52 Negative (Negative) 01/08/19 20:52 Normal mg/dL (Normal) 01/08/19 20:52 Ur Leukocyte Esterase Negative (Negative) 01/08/19 20:52 Ur Culture Indicated? NO (NO) 01/08/19 20:52 Salicylates < 2.5 mg/dL (15.0-30.0) L 01/08/19 20:07 Negative ng/mL (Ymydij=290) 01/08/19 20:52 Acetaminophen < 10 mcg/mL (10-20) L 01/08/19 20:07 Ur Barbiturates Screen Negative ng/mL (Jjpjuc=011) 01/08/19 20:52 Ur Phencyclidine Scrn Negative ng/mL (Cutoff=25) 01/08/19 20:52 Ur Amphetamines Screen Negative ng/mL (Krfxkq=5232) 01/08/19 20:52 U Benzodiazepines Scrn Negative ng/mL (Tozrok=802) 01/08/19 20:52 Negative ng/mL (Cutoff= 300) 01/08/19 20:52 U Marijuana (THC) Screen Positive ng/mL (Cutoff = 50) H 01/08/19 20:52 Ur Drug Screen Interp See Below 01/08/19 20:52 Ethyl Alcohol 69 mg/dL (Less than 10) H 01/09/19 03:56 Ur C. trach DNA (PCR) NOT DETECTED (Not Detect) 01/08/19 20:50 U N.gonorrhoeae DNA PCR NOT DETECTED (Not Detect) 01/08/19 20:50 Diagnosis - Discharge Diagnosis (1) Major depression Status: Acute Qualifiers: Major depression recurrence: recurrent Active/Remission status: currently active Major depression episode severity: moderate Qualified Code(s): F33.1 - Major depressive disorder, recurrent, moderate Assessment and Plan - Patient/Caregiver Discharge Instructions Activity: resume usual activities as tolerated Diet: regular diet - Follow up Plan Follow up with: NONE,PCP [Primary Care Provider] - Functional capacity at discharge: independent ambulation Overall status at discharge: Stable Disposition: Home, Self-Care Provider Date of admission: 01/09/19 06:58 Primary care physician: PCP NONE Discharging clinician: Quin Frazier Hospital Course Hospital course: Mr. Ward is a 23 year old male who was admitted secondary to SI. Client came to the ER intoxicated with a BAL over 0.2. At the time of presentation he was screaming he wanted admitted to and that he would kill himself if not admitted. Client lives with his mother who accompanied him and she reported client has threatened suicide in the past but that she has never seen him like this before. When client sobered up in the ER he denied SI/HI/AH/VH and did not want admitted. He did not remember much of the night before. He did not deny saying the things he did but reported it was just the alcohol talking. Staff called his mother who had gone home. She reported having unlocked guns at home and this made her nervous. Client was then admitted to for further assessment of safety risk. On eval today client is alert and oriented. Adamantly denying SI, intent, or plan. No history of attempts. No history of hospitalizations. Client does admit to some depression and reports he recently started seeing a counselor at [facility]. Also takes Lexapro from PCP but not finding it helpful. Client has a significant history of substance abuse including pain pills, cocaine and Xanax. Quit everything cold turkey almost a year ago. Has not felt physically right since coming off all drugs. Has aches and pains that he has been trying to control with alcohol since [place] 23 a couple of weeks ago. Client states he was never a drinker until his 23st birthday a couple of weeks ago. States last night taught him a valuable lesson as to what alcohol can do. Client reports he has never endorsed suicidality unless intoxicated/high. This senior copywriter spoke with client's mother via phone. She indicated she felt comfortable having him return home today but that she wanted to make sure he followed up frequently on an outpatient basis. She indicated she would secure the guns or remove them from the house before his return. Client currently only taking 5mg of Lexapro. Tolerating it well. Discussed how this dose might not be effective for him so will increase to 10mg and have him follow-up with his outpatient provider. Staff will call him at home tomorrow to discuss outpatient linkage/weekly therapy appointments for a time. Client and mother agreeable with this plan. Total time spent with client greater than 30 minutes. Patient was educated of his diagnosis and the risks, benefits, and side effects of this treatment and alternative treatment options and was monitored for responsiveness and side effects. Mood, anxiety, sleep, appetite, and interest improved, as did future orientation. Self-harm thoughts subsided, thinking cleared, psychosis resolved, and mood stabilized. Patient was able to attend both individual and group therapy sessions as well as meeting with the psychiatrist daily and urged to discuss any medication or treatment issues or other concerns. The patient was educated primarily by verbal means about their diagnosis and manifestations in their life. The option for treatment including group and individual therapy programming was offered to the patient in the use of medications with all their potential risks, benefits, and side effects were discussed with the patient at length. The patient was given the opportunity to ask questions and was noted to participate in the treatment in the planning process. The patient felt ready and eager to be discharged from the inpatient psychiatric unit to continue on with treatment as an outpatient. The patient agreed that is they were safe for this disposition. The patient was considered to be able to participate in informed consent and decision making with respect to medical, legal, and financial issues of the time of discharge. At the time of discharge the patient adamantly denied any concerns for lethality including suicidal or homicidal thoughts ideations or plans and was future oriented toward ongoing mental health care, medical follow-up and sobriety. - Time Spent with Patient Total time spent providing and/or coordinating discharge services: Procedures - Procedures Procedures: Medication Management, Crisis Stabilization, Supportive Therapy, Group Therapy Quality - Multiple Antipsychotics Patient discharged on 2 or more antipsychotic medications: No
== END 2019-01-09 12:35 | disposition home or self-care (01) | DRG 885 ==
LOC: EMEROOARM 19:58 → 1ANU 01-09 06:58
PROVIDERS: ADMIT Psychiatry & Neurology Psychiatry; ATTEND Psychiatry & Neurology Psychiatry